=== PATIENT | female | born 1960 | race Caucasian/White ===

== ENCOUNTER → 2018-11-13 09:25 | Outpatient (CLI) | payer OTHER, SELFPAY ==
--- NOTE | 2018-10-23 17:02 | PCM.HP.BLA ---
History and Physical Date of Admission: 10/24/18 HISTORY AND PHYSICAL - BREAST COMPLAINT ? Lisa Conde 1960 ? ? REFERRING PHYSICIAN: ??Kaye Rhodes MD ? CHIEF COMPLAINT: ??Right nipple discharge - questionable papilloma at right breast 10:00 position right at nipple/areolar region ? HPI: The patient is a 57 year old female with a complaint of?nipple discharge from the?right?breast. ?The patient has noticed this nipple discharge for for 5 years. ?The discharge occurs intermittently. ?She notes that the discharge is is usually clear liquid but occasionally will be bloody during her menses. ?A recent mammogram was obtained which demonstrated no abnormalities. ?The patient was evaluated for this difficulty in the past and had a breast MRI which was unremarkable. ? ? The patient was evaluated for this concern by Dr. Ulloa in 2013. ?Ultrasound images at that time demonstrated a 5 mm potential abnormality in the right breast slightly medial and deeper. ?She underwent core biopsy on October 22, 2013. ?Pathology returned as apocrine cystic change no carcinoma identifiedl. ?She had a normal prolactin blood level in 2013 ? More recently, the patient underwent ultrasound of her breast in addition to a recent mammogram. ?Ultrasound demonstrated: ? IMPRESSION: PROBABLY BENIGN - SHORT TERM INTERVAL FOLLOW-UP RECOMMENDED The 2 mm oval mass in the right breast resembles a papilloma and is probably benign. ?A surgical consult is recommended. ?MRI may be helpful for evaluation. A follow-up ultrasound in 6 months is recommended to demonstrate stability. Brendon daniel/cody:09/26/2018 08:20:09 ? ?The patient denies a history of breast masses. ?She does not??perform a self breast exam routinely. ?She notes no skin changes. ?She notes no axillary masses. ?She notes no family history of breast problems. ?She notes no significant breast trauma or breast difficulties in the past. ? ? The patient is being seen by me today at the request of Dr.?Kaye Rhodes MD?for my opinion and advice regarding persistent right bloody nipple discharge. ? PAST?MEDICAL?HISTORY PAST MEDICAL HISTORY Diagnosis Date ? DERMATITIS DUE TO PLANT(recurrent poison kali) 01/27/2005 ? DERMATITIS DUE TO PLANT(recurrent poison kali) 01/27/2005 ? DIFFUS CYSTIC MASTOPATHY 01/27/2005 ? Nipple discharge 09/2013 ? Right; yellow/bloody. ? Snoring ? ? ? PAST?SURGICAL?HISTORY PAST SURGICAL HISTORY Procedure Laterality Date ? BREAST BIOPSY CORE ? 10/22/2013 ? right breast ? COLONOSCOP W/ OR W/O BRSH SPEC ? 03/23/15 ? Colonoscopy ? ? CURRENT?MEDICATIONS ? Current Outpatient Medications: desoximetasone (TOPICORT) 0.25 % cream Apply 1 application to affected area twice daily. Disp: 15 g Rfl: 0 THERAPEUTIC MULTIVITAMIN ORAL TAB Take one(1) tablet daily. Disp: Rfl: 0 ? No current facility-administered medications for this visit.? ? ALLERGIES:?Patient has no known allergies. ? PERSONAL HISTORY:? SOCIAL?HISTORY Social History ??Socioeconomic History ?Marital status: ?Spouse name: Not on file ?Number of children: 0 ?Years of education: Not on file ?Highest education level: Not on file ??Social Needs ?Financial resource strain: Not on file ?Food insecurity - worry: Not on file ?Food insecurity - inability: Not on file ?Transportation needs - medical: Not on file ?Transportation needs - non-medical: Not on file ??Occupational History ?Not on file ??Tobacco Use ?Smoking status: Never Smoker ?Smokeless tobacco: Never Used ??Substance and Sexual Activity ?Alcohol use: Yes ?Comment: Occas. ?Drug use: No ?Sexual activity: Not on file ??Other Topics ?Concerns: ?Not on file ??Social History Narrative ?Not on file ? FAMILY HISTORY:? FAMILY?HISTORY FAMILY HISTORY Problem Relation Age of Onset ? Breast Cancer Mother 57 ? Coronary Artery Disease Father ?status post cabg/ hx of skin cancer ? Diabetes Mother ? ? Diabetes Maternal Grandmother ? ? other (Abdominal Cancer [Other]) Father 87 ? REVIEW OF SYMPTOMS: ??The review of systems data was entered by the nurse and reviewed by me ? Nursing Notes: Josefina Perea LPN ?10/05/2018 ?3:28 PM ?Signed REVIEW OF SYSTEMS: ?General:???The patient denies fatigue, denies weight loss, denies weight gain, denies feeling hot, and denies feelings of cold. ?Eyes: ?The patient denies glaucoma, denies eye injury/surgery, wears glasses or contacts. ?Ear/Nose/Throat: ?The patient denies allergies, denies hayfever, denies ear infections, and denies bloody noses. ?Cardiovascular: ?The patient denies chest pain, denies heart disease, denies high blood pressure,denies cardiac stent, denies prior heart attack, denies irregular heart beat, denies high cholesterol, ?denies poor circulation, denies heart failure, other cardiac issues, denies claudication, denies cold feet, denies peripheral arterial stent. ?Respiratory: ?The patient denies tuberculosis, denies pneumonia, denies frequent cough, denies pulmonary embolism, denies shortness of breath, and denies coughing up blood. ?Gastrointestinal: ?The patient denies difficulty swallowing, denies acid reflux, denies ulcers, denies vomiting, denies jaundice/hepatitis, denies gallbladder problems, denies black or tarry stools, denies hemorrhoids, denies bleeding from rectum, denies diverticulitis, denies constipation, denies diarrhea, denies loss of stool control, and denies hernias. ?Kidney/Bladder: ?The patient denies kidney stones, denies urine infections, and denies bloody urine. ?Skin: ?The patient denies a history of skin cancer, denies bleeding/changing moles, and denies a history of skin rash. ?Neurologic: ?The patient denies a history of epilepsy/convulsions, NOTES headaches, denies head/spinal injuries, and denies stroke/TIA. ?Psychiatric: ?The patient denies psychiatric medications, denies depression, and denies voices, denies substance abuse. ?Endocrine: ?The patient denies thyroid disorders, denies diabetes, and NOTES hormonal problems. ?Hematologic: ?The patient denies a history of bruising, denies bleeding, and denies anemia, denies blood clots. ?Infections: ?The patient denies a history of measles and mumps, denies rheumatic fever, and denies sexually transmitted diseases. ?Musculoskeletal: ?The patient denies back pain/injury, denies back problems, denies sciatica, denies knee/foot trouble, denies arthritis, or denies gout. ? ? When was patient's last Mammogram screening? 2019 ? ?Last Colonoscopy: ?2014 ? Josefina Perea LPN ? PHYSICAL EXAMINATION: ? General: ?The patient is 57 year old female, well nourished, well hydrated in no acute distress. ?The patient is oriented to time, place, and person. ? VITALS:?Blood pressure 136/70, pulse 108, temperature 36.3 ?C (97.4 ?F), temperature source Tympanic, resp. rate 16, height 165.1 cm (5' 5), weight 65.3 kg (144 lb), SpO2 99 %.?Body mass index is 23.96 kg/m?.? ? HEENT: ?Normal cephalic, ataumatic, pupils are equally round, sclera are anicteric, mucous membranes are moist, oropharynx is clear. ?Neck has no masses, asymmetry or lymphadenopathy. ?Thyroid is unremarkable. ? Respiratory: ?Clear to auscultation and percussion. ?Normal respiratory excursion and pattern. ? Cardiac: ?Examination is regular rate and rhythm. ? Abdominal exam: ?Soft, nontender, ?with no palpable masses. ?No hepatosplenomegaly. ?No palpable hernias. ? Rectal exam: ?exam deferred Extremities: ?no clubbing, cyanosis or edema. ?No adenopathy. ? Breast: ?Visual inspection reveals no retractions, nipple inversion, or skin changes. ?Palpation of the right breast reveals no dominant or suspicious masses, but multiple benign-feeling nodules. ?Palpation of the left breast reveals no dominant or suspicious masses and no dominant or suspicious masses, but multiple benign-feeling nodules. ?Axillary exam demonstrates no suspicious masses in either the left or right axilla. ?There is no nipple discharge expressed from either the left or right breast. ? LABORATORY VALUES: As Noted ? RADIOLOGIC STUDIES: ?As Noted ? Intraoffice ultrasound was performed. ?The 2 mm area of abnormality with a mildly dilated duct was noted to be at the 10:00 position approximately 1 cm from the nipple just below the margin of the nipple areolar complex. ?Pressure in this area did yield a drop of discharge from the nipple. ?No other discharge was expressed and palpation of the breast. ? ? Assessment ? IMPRESSION: Right nipple discharge, questionable papilloma 10:00 position right breast ? PLAN:??I plan to perform a?right breast excisional breast biopsy with ultrasound-guided wire placement. ?The planned surgical procedure was discussed extensively with the patient. ?The risks, benefits, anticipated outcomes and possible complications were mentioned. ?My staff has also explained the procedure in understandable terms and the patient was given the option to take printed material concerning the planned procedure. ?The patient had the opportunity to ask questions concerning the planned procedure. ?The patient freely consents to the planned procedure. ? Anticipated Surgical Procedure/ CPT Code: preoperative ultrasound guided needle placement -48694?EXCISIONAL BREAST BIOPSY - [id number] ? Anticipated Anesthetic:?Choice ? Patient weight:??Blood pressure 136/70, pulse 108, temperature 36.3 ?C (97.4 ?F), temperature source Tympanic, resp. rate 16, height 165.1 cm (5' 5), weight 65.3 kg (144 lb), SpO2 99 %.?BMI: ?Body mass index is 23.96 kg/m?. ? Planned antibiotic:?Ancef 2gm IVPB casino floor person to OR ? SCDs needed -?Yes ? Ramp Service Man Needed -?Yes ?? ? Diagnoses:?(N64.52) Nipple discharge in female ?(primary encounter diagnosis) ? My findings have been communicated to Dr.??Kaye Rhodes MD?via shared medical record. ?This note will be forwarded to Dr. Kaye Rhodes MD. ? Return to Clinic: The patient is instructed to follow-up with me?1 week post operatively. ? Javed Vela MD
== END ==
PROVIDERS: Family Provider Internal Medicine; PCP Internal Medicine; Referring Provider Surgery; Visit Provider Surgery
DX: Z01.818 Encounter for other preprocedural examination (principal)

== ENCOUNTER 2019-08-07 07:00 | Outpatient (RCR) | payer OTHER, SELFPAY ==
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
--- NOTE | 2019-10-22 11:03 | HP.PT.NRP ---
JOHNNIE BYERS was seen in my office for initial evaluation on 07/15/19. The following Plan of Care was established for this patient: Initial Frequency: 2x /Week Initial Duration: 4 Weeks Patient/Client Instruction: Educate patient on: Benefits of Fitness Program Therapeutic Exercise to Include: Strength training, Endurance training, Body mechanics, Postural training, Neuromotor development, Scapular Strength/Stabilization For the Purpose of:: To improve muscle performance and motor function TENS: Yes Cryotherapy (ice pack, ice massage): Yes Thermo therapy (hot pack): Yes Ultrasound (thermal/non thermal): Yes This patient was last seen in our office . Pertinent comments regarding their Physical therapy will appear below: Patient has not attended physical therapy in over 8 weeks- appropriate for d/c and return to MD as appropriate. At this point I will be discontinuing this patient from physical therapy. I would be happy to see this patient again in the future if found appropriate by the physician. Thank you! Joslyn Hartman DPT
== END 2019-08-07 19:00 | disposition home or self-care (01) ==
LOC: PT 07:00
PROVIDERS: PCP Internal Medicine; Referring Provider Specialist; Visit Provider Specialist
DX: S46.011D Strain of muscle(s) and tendon(s) of the rotator cuff of right shoulder, subsequent encounter (principal); M75.51 Bursitis of right shoulder; M75.41 Impingement syndrome of right shoulder
CPT/HCPCS: 97014; 97110; 97161; G0283

== ENCOUNTER 2020-08-25 11:29 | Outpatient (RCR) | payer OTHER, SELFPAY ==
[2020-08-25] MEDS: COVID-19 VACC, MRNA(PFIZER)/PF 30 MCG/0.3 ML SYRINGE IM (16:12)
[2020-09-15] MEDS: COVID-19 VACC, MRNA(PFIZER)/PF 30 MCG/0.3 ML SYRINGE IM (15:53)
== END 2020-11-17 23:59 ==
LOC: IMMUN 11:29
PROVIDERS: PCP Internal Medicine; Visit Provider Family Medicine
DX: Z23 Encounter for immunization (principal)
CPT/HCPCS: 0001A; 0002A; 91300

== ENCOUNTER 2021-11-01 07:37 | Day surgery (SDC) | payer OTHER, SELFPAY ==
--- NOTE | 2021-11-01 | COLBX_PTH ---
PATIENT: JOHNNIE BYERS LOC: EN U#:[id number] AGE/SX: 60/F ROOM: RE11/01/[address]: Dr. Pato Ojeda DO : 1960 BED: DIS: 11/01/2021 SPEC #: [id number] RECD: 11/01/21 13:39 STATUS: SHAYY REAnia #: [id number] MARY: 11/01/21 00:[address]: Pato Ojeda DEPT: SURGICAL PATHOLOGY RECD BY: Jordi Morel ENTERED: 11/01/21 13:40 SP TYPE: COLON BX OTHR DR: Dr. Kaye Rhodes MD Tissues: COLON BIOPSY Procedures: Surgery Specimen Level IV HEADER OPERATION: Colonoscopy ? open access (MAC) with biopsy PRE-OP DIAGNOSIS: Screening TISSUE SUBMITTED: Ascending colon polyp biopsy MICROSCOPIC DIAGNOSIS Ascending colon polyp, biopsy: Fragments of colonic mucosa, no pathologic diagnosis. See comment. SJ:cora 11/02/2021 COMMENT Adenomatous or hyperplastic changes are not seen. MICROSCOPIC DESCRIPTION Slides are reviewed. GROSS DESCRIPTION Received in fixative is one container labeled with the patient's name and designated ascending colon polyp biopsy. The specimen consists of two irregular fragments of light upton soft tissue that in aggregate measure 0.5 x 0.3 x 0.1 cm. The specimen is totally submitted in one cassette. / DESTIN:cora 11/01/2021 TC:4 CPT: 47048
[2021-11-01] MEDS: Lactated Ringers 1,000 ML 15 ML IV (08:05)
[2021-11-01 08:07] VITALS: BP 124/66; PULSE 77; RESP 16; TEMP 36.7; O2SAT 99; BMI 23.4
--- NOTE | 2021-11-01 08:09 | PCM.HP.BLA ---
History and Physical Date of Admission: 11/01/21 Lisa is a very pleasant 60-year-old who arrives here for screening colonoscopy. She underwent a colonoscopy approximately 10 years ago and did not have any abnormalities. She is not have any abdominal pain or cramping. She moves her bowels on a daily basis without the use of laxatives. She is not having any bleeding per rectum. She denies any diarrhea or constipation. Overall she is doing very well Past medical history-cystic disease of the breast, recurrent poison kali Past surgical history-breast biopsy, colonoscopy No known drug allergies Social history negative tobacco drugs Medications-as per [facility] Family history-negative for GI menses GI disease Physical examination-blood pressure is 124/66 , pulse is 77, respiratory rate 16, temperature 98.1, oxygen saturation 99% Generally-no acute distress,, normocephalic atraumatic Cardiovascular-positive S1-S2 no murmurs rubs or gallops Respiratory-clear to auscultation bilaterally Abdomen-soft nontender nondistended all 4 quadrants Extremities-no clubbing cyanosis or edema Assessment and plan- 60-year-old comes here for screening colonoscopy. She was explained alternatives, risk, benefits including not withstanding bleeding, infection, sepsis, perforation, need for emergent surgery . She have an ASA of 1.
--- NOTE | 2021-11-01 09:09 | OP.COLON_ITS ---
Patient Name: Lisa Conde Procedure Date: 11/01/2021 8:39 AM Date of : 1960 Age: 60 Procedure: Colonoscopy Indications: Screening for colorectal malignant neoplasm Providers: Pato Ojeda DO Medicines: Monitored Anesthesia Care Patient Profile: This is a 60 year old female. Refer to note in patient chart for documentation of history and physical. Last Colonoscopy: 10 years ago. Complications: No immediate complications. Procedure: Pre-Anesthesia Assessment: - Prior to the procedure, a History and Physical was performed, and patient medications and allergies were reviewed. The risks and benefits of the procedure and the sedation options and risks were discussed with the patient. All questions were answered and informed consent was obtained. Patient identification and proposed procedure were verified by the physician in the pre-procedure area. Mental Status Examination: alert and oriented. Airway Examination: normal oropharyngeal airway and neck mobility. Respiratory Examination: clear to auscultation. CV Examination: normal. Prophylactic Antibiotics: The patient does not require prophylactic antibiotics. Prior Anticoagulants: The patient has taken no previous anticoagulant or antiplatelet agents. After reviewing the risks and benefits, the patient was deemed in satisfactory condition to undergo the procedure. The anesthesia plan was to use moderate sedation / analgesia (conscious sedation). Immediately prior to administration of medications, the patient was re-assessed for adequacy to receive sedatives. The heart rate, respiratory rate, oxygen saturations, blood pressure, adequacy of pulmonary ventilation, and response to care were monitored throughout the procedure. The physical status of the patient was re-assessed after the procedure. After I obtained informed consent, the scope was passed under direct vision. Throughout the procedure, the patient's blood pressure, pulse, and oxygen saturations were monitored continuously. The Colonoscope was introduced through the anus and advanced to the terminal ileum. The colonoscopy was performed without difficulty. The patient tolerated the procedure well. The quality of the bowel preparation was good. Scope In: 8:49:32 AM Scope Withdrawal Time 0 hours 9 minutes 21 seconds Scope Out: 9:03:55 AM Total Procedure Duration Time 0 hours 14 minutes 23 seconds Findings: Hemorrhoids were found on perianal exam. Non-bleeding external and internal hemorrhoids were found during retroflexion. The hemorrhoids were Grade II (internal hemorrhoids that prolapse but reduce spontaneously). Multiple small and large-mouthed diverticula were found in the recto-sigmoid colon and sigmoid colon. A 5 mm polyp was found in the ascending colon. The polyp was sessile. The polyp was removed with a cold snare. Resection and retrieval were complete. Verification of patient identification for the specimen was done. Estimated blood loss was minimal. Impression: - Hemorrhoids found on perianal exam. - Non-bleeding external and internal hemorrhoids. - Diverticulosis in the recto-sigmoid colon and in the sigmoid colon. - One 5 mm polyp in the ascending colon, removed with a cold snare. Resected and retrieved. Recommendation: - Repeat colonoscopy in 5 years for surveillance. - Return to GI office in 1 week. - Continue present medications. Procedure Code(s): --- Professional --- 71193, LT, Colonoscopy, flexible; with removal of tumor(s), polyp(s), or other lesion(s) by snare technique CPT copyright 2017 [employer]. All rights reserved. The codes documented in this report are preliminary and upon head chef review may be revised to meet current compliance requirements. Pato Ojeda DO 11/01/2021 9:09:02 AM This report has been signed electronically. Number of Addenda: 1 Note Initiated On: 11/01/2021 8:39 AM Addendum Number: 1 Addendum Date: 03/11/2022 6:13:19 AM MAC was used as sedation for this procedure. Pato Ojeda DO 03/11/2022 6:13:23 AM This report has been signed electronically.
[2021-11-01 09:10] VITALS: BP 106/63; BP 124/66; PULSE 75; RESP 16; TEMP 36.2; O2SAT 97
--- NOTE | 2021-11-01 09:10 | OP.CCLET_ITS ---
03/11/2022 Kaye Rhodes [address] [place] [address] Re : Colonoscopy procedure for Lisa Conde Dear Dr. Rhodes This procedure was performed on Monday, November 01, 2021. My impressions and recommendations are as follows: Impressions : - Hemorrhoids found on perianal exam. - Non-bleeding external and internal hemorrhoids. - Diverticulosis in the recto-sigmoid colon and in the sigmoid colon. - One 5 mm polyp in the ascending colon, removed with a cold snare. Resected and retrieved. Recommendations : - Repeat colonoscopy in 5 years for surveillance. - Return to GI office in 1 week. - Continue present medications. My findings are described in the full procedure note, which is enclosed. If I can be of further assistance, please feel free to contact me at . Sincerely, Pato Ojeda, 11/01/2021 9:09:02 AM This report has been signed electronically.
[2021-11-01 09:15] VITALS: BP 103/65; BP 124/66; PULSE 70; RESP 16; O2SAT 98
[2021-11-01 09:20] VITALS: BP 112/65; BP 124/66; PULSE 67; RESP 16; O2SAT 98
[2021-11-01 09:26] VITALS: BP 104/64; BP 124/66; PULSE 65; RESP 16; TEMP 36.4; O2SAT 99
[2021-11-01 09:55] VITALS: BP 124/66
== END 2021-11-01 10:00 | disposition home or self-care (01) ==
LOC: EN 07:38 → AC 07:39
PROVIDERS: PCP Internal Medicine; Referring Provider Internal Medicine; Visit Provider Internal Medicine Gastroenterology
PROC: 0DJD8ZZ Inspection of Lower Intestinal Tract, Via Natural or Artificial Opening Endoscopic (ICD-10-PCS; CPT 45378; principal; 2021-11-01 08:40)
DX: Z12.11 Encounter for screening for malignant neoplasm of colon (principal); K57.30 Diverticulosis of large intestine without perforation or abscess without bleeding; K64.4 Residual hemorrhoidal skin tags; K63.5 Polyp of colon; K64.1 Second degree hemorrhoids
CPT/HCPCS: 45385; 88305; J7120; J2405